=== PATIENT | male | born 1950 | race Caucasian/White ===

== ENCOUNTER 2018-04-28 18:30 | Emergency (ER) | payer OTHER ==
[~2018-04-28] VITALS: Ht 180.3 cm; Wt 116.3 kg
[~2018-04-28 18:30] MED LIST: ASPIR-LOW81 M1 PO; CELEXA20 MG PO; FENOFIBRATE160 M1 PO; LIPITOR80 MG; PLAVIX75 MG PO; POTASSIUM CITR10 MEQ PO; THERALITH XR T1 EACH PO; TRIAMTERENE-HC1 EACH PO
[2018-04-28] MEDS ORDERED: FLEXERIL10 MG PO (20:30)
[2018-04-28] MEDS ORDERED: TRAMADOL HCL50 MG PO (20:30)
[2018-04-28 20:52] VITALS: BP 142/77
== END 2018-04-28 20:54 | disposition home or self-care (01) ==
LOC: EME 18:30
DX: S16.1XXA Strain of muscle, fascia and tendon at neck level, initial encounter (principal); R51 Headache; V43.52XA Car driver injured in collision with other type car in traffic accident, initial encounter; Y92.410 Unspecified street and highway as the place of occurrence of the external cause; Z79.02 Long term (current) use of antithrombotics/antiplatelets; Z88.5 Allergy status to narcotic agent
CPT/HCPCS: 70450; 72125; 99281; 99284